=== PATIENT | male | born 1975 | race Two or more races ===

== ENCOUNTER 2022-09-05 07:27 | Emergency (ER) | payer SELFPAY ==
[2022-09-05 07:29] VITALS: BP 177/98; PULSE 102; RESP 18; TEMP 36.7; O2SAT 98; BMI 25.1
--- NOTE | 2022-09-05 07:33 | ECG_ITS ---
APPROVED REPORT Exam: Resting ECG HR:103 bpm ECG Measurements Heart Rate 103 AXES UT 136 P 48 QRSd 90 QRS 17 QT 352 T 60 QTc 412 Conclusion [address] MINIMAL ST DEPRESSION [0.025+ mV ST DEPRESSION] ABNORMAL RHYTHM ECG UNCONFIRMED REPORT Electronically signed by : Daniel Santos MD 09/05/2022 21:28:10
--- NOTE | 2022-09-05 07:47 | PC.NURSE ---
Oredered patient a food tray from dietary
--- NOTE | 2022-09-05 07:50 | PC.NURSE ---
DR ESCALONA AT BEDSIDE
--- NOTE | 2022-09-05 07:52 | PC.NURSE ---
PT PROVIDED BREAKFAST TRAY
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
--- NOTE | 2022-09-05 08:03 | PC.NURSE ---
PT REFUSES TO HAVE ANY BLOOD WORK DRAWN OR ANY CARE RECEIVED FROM STAFF. SPOKE WITH PT'S MOTHER TO COLLECT MORE INFORMATION ON PT'S CONDITION. STATES SHE DOESN'T KNOW WHAT IS GOING ON. SHE CANNOT COME GET THE PT NOR TAKE CARE OF HIM. INSTRUCTED TO CALL PT'S AUNT, PROVIDED NUMBER FOR AN AUNT AUNT (JUANITA CANALES) CALLED, UPDATED ON PT STATUS. REPORTS PT HAS HAD SIMILAR EPISODE IN YEARS PAST. STATES SHE THINKS PT HAS TAKEN SOME DRUG THAT CAUSES HIS PARANOID BEHAVIOR. 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
--- NOTE | 2022-09-05 09:09 | PC.NURSE ---
Pt up walking around and unable to VS.
--- NOTE | 2022-09-05 09:51 | PC.NURSE ---
PT RESTING IN BED WATCHING TV, NO NEEDS AT THIS TIME
--- NOTE | 2022-09-05 11:07 | PC.NURSE ---
PT SLEEPING IN BED
--- NOTE | 2022-09-05 12:12 | PC.NURSE ---
PT IS STILL SLEEPING IN BED WAITING FOR AUNT TO PICK HIM UP
--- NOTE | 2022-09-05 12:26 | PC.NURSE ---
PT SLEEPING SOUNDLY, NO DISTRESS NOTED
--- NOTE | 2022-09-05 12:33 | PC.NURSE ---
CALLED PT AUNT NO ANSWER LEFT A VOICEMAIL TO CALL BACK
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
[2022-09-05 13:45] VITALS: BP 141/85; PULSE 74; RESP 17; TEMP 36.6; O2SAT 98
== END 2022-09-05 13:46 | disposition home or self-care (01) ==
PROVIDERS: Emergency Provider Emergency Medicine
DX: F43.0 Acute stress reaction (principal); R00.0 Tachycardia, unspecified; G40.909 Epilepsy, unspecified, not intractable, without status epilepticus; F17.210 Nicotine dependence, cigarettes, uncomplicated
CPT/HCPCS: 93005; 96360; 99284